=== PATIENT | male | born 1960 | race Caucasian/White ===

== ENCOUNTER 2019-04-13 11:30 | Emergency (ER) | payer OTHER ==
[2019-04-13] MEDS: KETOROLAC 30 MG INJ IM (13:25)
== END 2019-04-13 14:25 | disposition home or self-care (01) ==
LOC: FTE 11:30
DX: S63.91XA Sprain of unspecified part of right wrist and hand, initial encounter (principal); I10 Essential (primary) hypertension; E11.9 Type 2 diabetes mellitus without complications; W01.0XXA Fall on same level from slipping, tripping and stumbling without subsequent striking against object, initial encounter; Y92.9 Unspecified place or not applicable; Z87.891 Personal history of nicotine dependence
CPT/HCPCS: 73130; 73130-RT; 96372; 99284-25